=== PATIENT | female | born 1975 ===

== ENCOUNTER 2017-01-06 06:08 | Inpatient (IN) | payer OTHER ==
[2017-01-06] VITALS (12 sets, daily range): BP systolic 97–123; BP diastolic 53–88
[~2017-01-06] VITALS: Ht 165.1 cm; Wt 55.8 kg
[2017-01-06] MEDS ORDERED: LR 1000ml 1,000 ML IVLG SCH (06:32)
--- NOTE | 2017-01-06 06:34 | Anethesia Preoperative Eval ---
Anesthesia Pre-op PMH/ROS General Date of Evaluation: Jan 06, 2017 Time of Evaluation: 07:24 Anesthesiologist: Rica ASA Score: ASA 2 Mallampati Score Class I : Soft palate, uvula, fauces, pillars visible Class II: Soft palate, uvula, fauces visible Class III: Soft palate, base of uvula visible Class IV: Only hard plate visible Mallampati Classification: Class I Surgeon: Muna Diagnosis: Back Pain Surgical Procedure: L4-5, L5-S1 Bilateral, Microdiscectomy, Foraminotomy, Hemilaminotomy Anesthesia History: none Social History: current smoker Family History: no anesthesia problems Allergies: Coded Allergies: PENICILLINS (Verified Allergy, Unknown, 01/05/17) Medications: see eMAR Past Medical History Neurologic/Psychiatric: Reports: depression/anxiety, other - Migranes PSxH Narrative: TL, L Breast Mass Anesthesia Pre-op Phys. Exam Physician Exam Vital Signs Date Time Temp Pulse Resp B/P (MAP) Pulse Ox O2 Delivery O2 Flow Rate FiO2 01/06/17 07:10 98.1 73 20 106/60 100 Room Air Constitutional: NAD Neurologic: CN 2-12 intact Cardiovascular: RRR Respiratory: CTA Gastrointestinal: S/NT/ND Airway Exam Mallampati Score: Class I MO: full ROM: full Teeth: missing Anesthesia Pre-op A/P Labs Urine Test Test 01/06/17 06:20 Urine HCG, Qualitative Pending Risk Assessment & Plan Assessment: ASA 2 Plan: GA, BIS, Glidescope Status Change Before Surgery: No Pre-Antibiotics Dru Grams Ancef IV Given Within 1 Hr of Incision: Yes Time Given: 07:36 Conor Strauss MD Jan 06, 2017 06:34
[2017-01-06] MEDS ORDERED: Acetaminophen (Non formulary) 100 ML IV ONE (06:45)
[2017-01-06] MEDS ORDERED: Ketorolac 30mg Inj IV PRN (06:45)
[2017-01-06] MEDS ORDERED: Metoclopramide 10mg/2ml Inj IVP PRN ×2 (06:45→07:15)
[2017-01-06] MEDS ORDERED: Hydromorphone 0.5mg/0.5ml inj IVP PRN (06:45)
[2017-01-06] MEDS ORDERED: Norco 5mg/325mg tab ORAL PRN ×2 (06:45→07:15)
[2017-01-06] MEDS ORDERED: fentaNYL 100 mcg/2 mL IV PRN (06:45)
[2017-01-06] MEDS ORDERED: DiphenhydrAMINE 50mg/ml Inj IVP PRN (06:45)
[2017-01-06] MEDS ORDERED: oxyCODONE HCL/Acetaminophen 5/325mg ORAL PRN (06:45)
[2017-01-06] MEDS ORDERED: Midazolam 2mg/2ml Inj IVP PRN (06:45)
[2017-01-06] MEDS ORDERED: Atropine Inj 1mg/10ml Syr IV PRN (06:45)
[2017-01-06] MEDS ORDERED: Ketorolac 60mg Inj IV PRN (06:45)
[2017-01-06] MEDS ORDERED: Norco 7.5mg/325mg tab ORAL PRN ×3 (06:45→07:15)
[2017-01-06] MEDS ORDERED: LORazepam Inj 2mg/ml 1ml IV PRN (06:45)
[2017-01-06] MEDS ORDERED: CARISOPRODOL350 MG ORAL (07:02)
[2017-01-06] MEDS ORDERED: MACROBID100 MG ORAL (07:02)
[2017-01-06] MEDS ORDERED: Thrombin 5000 units TOPIC ONE ×4 (07:04→08:47)
[2017-01-06] MEDS ORDERED: Surgicel 4in x 8in TOPIC ONE (07:04)
[2017-01-06] MEDS ORDERED: Ropivacaine 5mg/ml Vial 30ml INJ ONE ×2 (07:05→09:33)
[2017-01-06] MEDS ORDERED: Vancomycin 1gm inj IVPB ONE ×2 (07:05→07:09)
[2017-01-06] MEDS ORDERED: Bacitracin 50000 Units Vial ONE ×2 (07:05→07:10)
[2017-01-06] MEDS ORDERED: Thrombin 5000 units spray kit TOPIC ONE (07:10)
[2017-01-06] MEDS ORDERED: Bupivacaine 0.5% Inj 30 ml vial INJ ONE (07:10)
[2017-01-06] MEDS ORDERED: Gelfoam Absorbable 1gm powder pkt TOPIC ONE (07:10)
[2017-01-06] MEDS ORDERED: Lidocaine 1% 10mg/ml/EPI 0.01mg/ml 50ml INJ ONE (07:10)
--- NOTE | 2017-01-06 07:14 | Pre-Procedure Note/Attestation ---
Pre-Procedure Note/Attestation Complete Prior to Procedure Planned Procedure: not applicable Procedure Narrative: L45 and L5S1 left sided microdiscectomy , bilateral hemilaminotomy decompression Indications for Procedure Pre-Operative Diagnosis: L45 and L5S1 hnp pain Attestation I attest that I discussed the nature of the procedure; its benefits; risks and complications; and alternatives (and the risks and benefits of such alternatives ), prior to the procedure, with the patient (or the patient's legal commercial sales representative). I attest that, if there was a reasonable possibility of needing a blood transfusion, the patient (or the patient's legal commercial sales representative) was given the [place] Department [employer] standardized written summary, pursuant to the Sherwin [place] Blood Safety Act ([place] Health and Safety Code # 1645, as amended). I attest that I re-evaluated the patient just prior to the surgery and that there has been no change in the patient's H&P, except as documented below: SHI DUNCAN Jan 06, 2017 07:14
[2017-01-06] MEDS ORDERED: Milk of Magnesia 30ml Ud ORAL PRN (07:15)
[2017-01-06] MEDS ORDERED: Chloraseptic Spray 20mL Bottle ORAL PRN (07:15)
[2017-01-06] MEDS ORDERED: Naloxone 0.4mg/ml Inj IVP PRN (07:15)
[2017-01-06] MEDS ORDERED: HYDROmorphone 1mg/ml Carpuject SUBQ PRN (07:15)
[2017-01-06] MEDS ORDERED: HYDROmorphone 1mg/ml Carpuject IVP PRN (07:15)
--- NOTE | 2017-01-06 07:15 | Brief Operative Note ---
Immediate Post Operative Note Operative Note Chief Complaint: bilateral leg pain and radiculopathy Pre-op Diagnosis: L45 and L5S1 hnp pain Procedure: L45 and L5S1 left sided microdiscectomy , bilateral hemilaminotomy decompression Post-op Diagnosis: same as pre-op Findings: consistent w/pre-op dx studies Surgeon: Muna Egg Worker: Jair Anesthesia: general Specimen: none Complications: none Condition: stable Estimated Blood Loss: minimal Drains: none Implant(s) used?: Yes - mary ann ioflex sz 12 SHI DUNCAN Jan 06, 2017 07:15
[2017-01-06] MEDS ORDERED: Lidocaine 1% Plain 30 ml INJ ONE (07:30)
[2017-01-06] MEDS ORDERED: fentaNYL 100 mcg/2 mL IV ONE (07:30)
[2017-01-06] MEDS ORDERED: Zemuron 50mg/5ml Inj IV ONE (07:30)
[2017-01-06] MEDS ORDERED: NS Irrig 1000ml ONE (07:30)
[2017-01-06] MEDS ORDERED: Glycopyrrolate 0.2mg/ml 1ml Vial ONE (07:30)
[2017-01-06] MEDS ORDERED: Dexamethasone 4mg/ml vial ONE (07:30)
[2017-01-06] MEDS ORDERED: Lidocaine 1% MPF 10mg/ml 5ml ONE (07:30)
[2017-01-06] MEDS ORDERED: LR 1000ml ONE (07:30)
[2017-01-06] MEDS ORDERED: Sterile Water Irrig 1000ml IRRIG ONE (07:30)
[2017-01-06] MEDS ORDERED: Propofol 1,000mg/ 100ml btl IV ONE (07:30)
--- NOTE | 2017-01-06 08:41 | Immediate Post-Op Evaluation ---
Immediate Post-Op Evalulation Immediate Post-Op Evalulation Procedure: L4-5, L5-S1 Bilateral, Microdiscectomy, Foraminotomy, Hemilaminotomy Date of Evaluation: Jan 06, 2017 Time of Evaluation: 10:20 IV Fluids: 600 LR Blood Products: 0 Estimated Blood Loss: 30 Urinary Output: 200 Blood Pressure Systolic: 123 Blood Pressure Diastolic: 81 Pulse Rate: 87 Respiratory Rate: 16 O2 Sat by Pulse Oximetry: 100 Temperature (Fahrenheit): 98.7 Pain Score (1-10): 3 Nausea: No Vomiting: No Complications 0 Patient Status: awake, reacts, patent, extubated, none Hydration Status: adequate Dru Grams Ancef IV Given Within 1 Hr of Incision: Yes Time Given: 07:36 Conor Strauss MD Jan 06, 2017 08:41
[2017-01-06] MEDS ORDERED: Docusate 100mg cap ORAL SCH (09:00)
--- NOTE | 2017-01-06 11:17 | Diagnostic Imaging Report ---
Indication: PAIN, intraoperative imaging Technique: Intraoperative images Comparison: None Findings: Initial image demonstrates localizing tool posterior to what is presumably the L5-S1 disc. Subsequent images demonstrate surgical tools posterior wall to L5. Subsequent images demonstrate deployment of the Baxano device at L5-S1 and then at L4-5 Impression: Intraoperative imaging, as described
[2017-01-06] MEDS: Dexamethasone 4mg/ml vial IVP SCH ×2 (12:46→17:25)
--- NOTE | 2017-01-06 14:15 | Consultation ---
History of Present Illness General Date patient seen: Jan 06, 2017 Time patient seen: 14:15 Chief Complaint: b/l leg pain and radiclopathy Referring physician: Dr. Toro Reason for Consultation: med mgmt Present Illness HPI 41y/o female with pmh of lower back/leg pain with radiculopathy 2/2 L4-5 and L5- S1 HNP who presents s/p L45 and L5S1 left sided microdiscectomy , bilateral hemilaminotomy decompression earlier today. Postop pain appears well controlled. No f/c, n/v, d/c, chest pain, SOB, abd pain. Pt states she was recently diagnosed with UTI and has been on macrobid for the past 2 days. Allergies: Coded Allergies: PENICILLINS (Verified Allergy, Unknown, 01/05/17) Medication History Scheduled Carisoprodol* (Carisoprodol*), 350 MG ORAL Q12, (Reported) Nitrofurantoin Monohyd/M-Cryst (Nitrofurantoin Stark-Mcr 100 mg), 100 MG ORAL BID , (Reported) Patient History History Provided By: Patient, Family Member, Medical Record Healthcare decision maker YAEL- Resuscitation status Full Code Advanced Directive on File Past Medical/Surgical History Past Medical/Surgical History: (1) HNP (herniated nucleus pulposus), lumbar Family History Family History: (1) Family history of diabetes mellitus Social History Social History: (1) No significant social history Review of Systems ROS Narrative CONSTITUTIONAL: No weight loss, fever, chills, weakness or fatigue. HEENT: Eyes: No visual loss, blurred vision, double vision or yellow sclerae. Ears, Nose, Throat: No hearing loss, sneezing, congestion, runny nose or sore throat. SKIN: No rash or itching. CARDIOVASCULAR: No chest pain, chest pressure or chest discomfort. No palpitations or edema. RESPIRATORY: No shortness of breath, cough or sputum. GASTROINTESTINAL: No anorexia, nausea, vomiting or diarrhea. No abdominal pain or blood. NEUROLOGICAL: No headache, dizziness, syncope, paralysis, ataxia, numbness or tingling in the extremities. No change in bowel or bladder control. MUSCULOSKELETAL: No muscle, back pain, joint pain or stiffness. HEMATOLOGIC: No anemia, bleeding or bruising. LYMPHATICS: No enlarged nodes. No history of splenectomy. PSYCHIATRIC: No history of depression or anxiety. ENDOCRINOLOGIC: No reports of sweating, cold or heat intolerance. No polyuria or polydipsia. ALLERGIES: No history of asthma, hives, eczema or rhinitis. Physical Exam Physical Exam Narrative General: alert, cooperative, no distress, appears stated age Head: normocephalic, without obvious abnormality, atraumatic Eyes: conjunctivae/corneas clear. PERRL, EOM's intact Throat: lips, mucosa, and tongue normal. MMM Neck: supple, symmetrical, trachea midline, and no JVD Lungs: clear to auscultation bilaterally Heart: regular rate and rhythm, S1, S2 normal, no murmur, click, rub or gallop Abdomen: soft, non-tender, non-distended, bowel sounds normal; no masses or organomegaly Extremities: extremities normal, atraumatic, no cyanosis or edema Pulses: 2+ and symmetric Skin: skin color, texture, turgor normal; dressing c/d/i Neurologic: grossly normal, no focal deficits Last 24 Hour Vital Signs Date Time Temp Pulse Resp B/P (MAP) Pulse Ox O2 Delivery O2 Flow Rate FiO2 01/06/17 13:15 98.0 01/06/17 12:00 98.0 67 17 101/54 01/06/17 11:30 98.1 76 18 117/79 01/06/17 11:03 98.8 73 20 120/80 100 Nasal Cannula 3.0 01/06/17 11:02 98.7 01/06/17 10:52 70 20 113/84 100 Simple Mask 8.0 01/06/17 10:38 84 20 114/79 100 Simple Mask 8.0 01/06/17 10:25 103 20 120/70 100 Simple Mask 8.0 01/06/17 10:14 103 20 122/88 100 Simple Mask 8.0 01/06/17 10:09 98.7 96 20 123/81 100 Simple Mask 8.0 01/06/17 10:08 87 16 100 01/06/17 07:10 98.1 73 20 106/60 100 Room Air Intake and Output 01/06/17 01/07/17 19:00 07:00 Intake Total 600 ml Output Total 230 ml Balance 370 ml Intake IV Total 600 ml Output Urine Total 200 ml Estimated Blood Loss 30 ml Laboratory Tests Test 01/06/17 06:20 Urine HCG, Qualitative Negative Height (Feet): 1 Height (Inches): 0.00 Weight (Pounds): 1 Medications Current Medications Medications (Trade) Dose Ordered Sig/Cindy Route PRN Reason Start Time Stop Time Status Last Admin Dose Admin Acetaminophen (Tylenol) 650 mg Q4H PRN ORAL headache or temp>101 01/06/17 07:15 02/05/17 07:14 Acetaminophen/ Hydrocodone Bitart ([place] 5/325) 1 tab Q3H PRN ORAL pain score 1-3 01/06/17 07:15 01/13/17 07:14 Acetaminophen/ Hydrocodone Bitart ([place] 7.5/325) 1 ea Q3H PRN ORAL pain score 4-6 01/06/17 07:15 01/13/17 07:14 Acetaminophen/ Hydrocodone Bitart ([place] 7.5/325) 2 ea Q3H PRN ORAL pain scale 7-10 01/06/17 07:15 01/13/17 07:14 Carisoprodol (Soma) 350 mg TIDPRN PRN ORAL SPASM 01/06/17 07:15 02/05/17 07:14 Cefazolin Sodium 1 gm/Dextrose 55 ml @ 110 mls/hr Q8H IV 01/06/17 15:00 01/07/17 07:29 Cetylpyridinium Chloride (Cepacol) 1 lozenge EVERY 2 HOURS PRN ANTONIO To Patient Comfort 01/06/17 07:15 02/05/17 07:14 Dexamethasone Sodium Phosphate (Decadron 4mg/ml vial) 4 mg Q6H IVP 01/06/17 13:30 01/07/17 07:31 01/06/17 12:46 Docusate Sodium (Colace) 100 mg TWICE A DAY ORAL 01/06/17 18:00 02/05/17 17:59 Hydromorphone HCl (Dilaudid) 1 mg Q2H PRN IVP Breakthrough Pain 01/06/17 07:15 01/13/17 07:14 01/06/17 12:46 Hydromorphone HCl (Dilaudid) 1 mg Q4H PRN SUBQ Mild Pain (Pain Scale 1-3) 01/06/17 07:15 01/13/17 07:14 Hydromorphone HCl (Dilaudid) 2 mg Q3H PRN SUBQ Severe Pain (Pain Scale 7-10) 01/06/17 07:15 01/13/17 07:14 Hydromorphone HCl (Dilaudid) 2 mg Q4H PRN SUBQ Moderate Pain (Pain Scale 4-6) 01/06/17 07:15 01/13/17 07:14 Magnesium Hydroxide (Mom) 30 ml QIDPRN PRN ORAL Constipation 01/06/17 07:15 02/05/17 07:14 Metoclopramide HCl (Reglan) 10 mg Q6H PRN IVP Nausea & Vomiting 01/06/17 07:15 02/05/17 07:14 Naloxone HCl (Narcan) 0.1 mg PRN PRN IVP RR<12/min, pt unarousable 01/06/17 07:15 02/05/17 07:14 Ondansetron HCl (Zofran) 4 mg Q6H PRN IVP Nausea & Vomiting 01/06/17 07:15 02/05/17 07:14 Phenol/Menthol (Chloraseptic) 1 spray Q3H PRN ORAL To Patient Comfort 01/06/17 07:15 02/05/17 07:14 Sodium Chloride 1,000 ml @ 100 mls/hr Q10H IV 01/06/17 14:00 02/05/17 13:59 Temazepam (Restoril) 15 mg HSPRN PRN ORAL Insomnia 01/06/17 07:15 01/13/17 07:14 Assessment/Plan Problem List: (1) HNP (herniated nucleus pulposus), lumbar ICD Codes: M51.26 - Other intervertebral disc displacement, lumbar region SNOMED: 428389869 (2) UTI (urinary tract infection) ICD Codes: N39.0 - Urinary tract infection, site not specified SNOMED: 55274420 Status: stable Assessment/Plan Appreciate surgery rec's s/p L45 and L5S1 left sided microdiscectomy , bilateral hemilaminotomy decompression on 01/06/17 Post operative recommendations include: - encourage mobilization/ambulation - encourage incentive spirometry to optimize pulmonary hygiene - DVT/GI prophylaxis as appropriate - PT/OT - pain control, supportive care, bowel regimen Cont macrobid for UTI--pt has 11 dose sleft FULL CODE D/w pt/family, RN, pharmacist, surgery regarding mgmt and dispo Wijegunaratne,Kanishka M.D. Jan 06, 2017 14:15
[2017-01-06] MEDS: ceFAZolin sod 1 GM in D5W 55 ML IV SCH ×2 (15:20→23:02)
[2017-01-06] MEDS: NS w/KCl 20mEq 1,000 ML IV SCH (15:20)
[2017-01-06] MEDS: Docusate 100mg cap ORAL SCH (17:25)
--- NOTE | 2017-01-06 23:00 | Operative Note - Dictated ---
DATE OF OPERATION: 01/06/2017 SURGEON: Arnulfo Toro MD Tip Inserter: Court Adam ANESTHESIA: General endotracheal anesthesia. PREOPERATIVE DIAGNOSES: 1. Intractable back pain. 2. Intractable leg pain. 3. Worsening radiculopathy. 4. Weakness. 5. Herniated nucleus pulposus, L4-L5 and L5-S1 with herniation. 6. Neural foraminal stenosis, L4-L5 and L5-S1. POSTOPERATIVE DIAGNOSES: 1. Intractable back pain. 2. Intractable leg pain. 3. Worsening radiculopathy. 4. Weakness. 5. Herniated nucleus pulposus, L4-L5 and L5-S1 with herniation. 6. Neural foraminal stenosis, L4-L5 and L5-S1. PROCEDURES PERFORMED: 1. Left sided L4-L5 and L5-S1 microdiscectomy. 2. L4-L5 and L5-S1 hemilaminotomy, foraminotomy and medial facetectomy. 3. Bilateral L4-L5 and L5-S1 neural foraminotomy through a transpedicular intraforaminal approach. 4. Use of intraoperative microscope. 5. Supervision and interpretation of intraoperative fluoroscopy. 6. Supervision and interpretation of somatosensory-evoked potential and free running EMG monitoring. EBL: Less than 100 mL. COMPLICATIONS: None. DESCRIPTION OF INJURY: On 11/02/2013, the patient was at a local supermarket when she slipped on water on the floor and fell to the ground. She describes twisting her back and tingling on her leg on the left side afterwards. After the accident, she experienced back pain and leg pain. INDICATIONS FOR THE PROCEDURE: The patient presents for intractable back pain and radiculopathy. The patient tried and failed a prolonged course of conservative management, including but not limited to chiropractic therapy, physical therapy, nonsteroidal anti-inflammatory drugs, medication, ice packs as well as epidural injection. Despite these therapies, the patient still developed recalcitrant pain and elected for definitive management in the form of bilateral L4-L5 and L5-S1 microdiscectomy; L4-L5 and L5-S1 hemilaminotomy, foraminotomy and medial facetectomy; and L4-L5 and L5-S1 neural foraminotomy through a transpedicular intraforaminal approach. CONSENT: We had a long discussion with the patient regarding definitive surgical treatment options. The patient's MRI demonstrated herniated nucleus pulposus, L4-L5 and L5-S1 with herniation and neural foraminal stenosis, L4-L5 and L5-S1, and as a result, I felt the patient would benefit from the discectomy as well as neural foraminotomy at this level. We had a long discussion with the patient regarding the risks, alternatives, and benefits of surgery. Our description of the risks included a discussion in person as well as a signed consent which detailed all pertinent risks and the procedure itself. Briefly, our discussion included but was not limited to infection, bleeding, pseudarthrosis, spinal cord injury, neurovascular injury, dural tear, CSF leak, neuropathy, paralysis, permanent weakness/drop foot, paresthesias blindness, palsy and weakness. The patient understood there may be a need for revision surgery or additional procedures. Approach related complications including dysphonia, dysphagia, blindness, permanent vocal cord and neural injury, hematoma, swallowing and breathing difficulty. Medical complications including liver, kidney, shock, and cardiopulmonary failure. Anesthesia complications including , swelling. Damage to the musculature, larynx (voice injury or loss),esophagus (throat), trachea, blood vessels and muscles (muscular sprain) and lungs (pneumothorax) during this surgical procedure. Injury to deeper structures may be temporary or permanent. The patient understood these and elected to proceed. A written and verbal consent was given. We discussed the pros and cons of all the alternatives. We discussed the uncertainties associated with the decision. Afterwards I assessed the patients understanding and explored their preferences. All questions were answered and no guarantees were given. Medical clearance was obtained prior to surgery OPERATIVE FINDINGS: A broad-based disc herniation at L4-L5 and L5-S1, which encroached on the thecal sac and neural foraminal elements therein. This disc was acute in nature and not calcified. It was mobile and free floating and resected easily. There was also neural foraminal stenosis at L4-L5 and L5-S1. DESCRIPTION OF PROCEDURE: Under the benefit of general endotracheal anesthesia and with the assistance of the entire operative team, the patient was moved from the [facility] onto the operative table in the prone position on a Chance frame. The head was secured and positioned appropriately. Bilateral arms were secured with Gel pads and foam and all bony prominences were padded. The bilateral lower extremity SCD and LAKISHA hose were placed for DVT prophylaxis. A surgical timeout was called which corroborated our planned procedure. Preoperative Antibiotics were administered within 30 minutes of the incision for prophylaxis. Decadron was given for preoperative steroids. Using lateral radiography, the operative levels were delineated. An incision was marked based on our interpretation of lateral radiography and afterwards the body was prepped and draped in the usual sterile manner. The family was notified that we were ready to commence surgery and were called in the waiting room hourly for updates An incision was based on our lateral fluoroscopic image to center the incision at the L5-S1 interspace. The wound was prepped and draped in the usual sterile fashion. Using a scalpel a midline incision was taken down through the skin and subcutaneous tissues until the overlying hemilamina of L4-L5 and L5-S1 were visualized. Next, using meticulous hemostasis, hemilaminotomies were dissected and retractors were placed. Using a Kandu dental, we confirmed placement at the L4-L5 and L5-S1 interspace. We next turned our attention to our decompression. A standard hemilaminotomy, foraminotomy, and medial facetectomy was performed at each level in standard fashion using a Midas-Fernando type AM8 drill bit, straight and angled curettage, and Kerrison 4 rongeurs until the lateral thecal sac margin and traversing nerve root was visualized. All remainders of the ligamentum flavum and lateral bony margins were resected in total with angled curettage and Kerrison 4 rongeurs until the lateral thecal sac margin and traversing nerve root was visualized and decompressed. We next turned our attention toward our L4-L5 and L5-S1 microdiscectomy on the bilateral side. A Yoder 4 was used to gently mobilize the thecal sac medially and this was held retracted with a bayonetted nerve root retractor. It was at this point that we noted a large broad-based disc protrusion with encroachment dorsally on the thecal sac neural foraminal contents. A bayonet and nerve root retractor was then placed carefully to retract the thecal sac and a discectomy was performed using a combination of a long handled 15 blade scalpel, downgoing and straight pituitaries and downgoing curettage. Afterward the disc space was irrigated twice with 20 mL of antibiotic-impregnated saline. All loose and free-floating disc fragments were carefully resected with a narrow pituitary. Having been satisfied with our decompression after our discectomy of all neural elements, we next turned our attention to our neural foraminoplasty/foraminotomy. This was performed through a transpedicular intraforaminal approach using an access probe followed by a neuro check device, which confirmed ventral placement of our nerve root. Once we confirmed we were safe, we next turned our attention towards placement of our size 10 file under direct microscopic visualization and under lateral fluoroscopy. Using pre and post reciprocation imaging, we were able to visualize our direct decompression given the reciprocation allowed for re-creation of the neural foraminal arch at L4-L5 and L5-S1. Afterwards, hemostasis was obtained with 60 mL of antibiotic-impregnated saline followed by FloSeal and Gelfoam. After sponge and needle count were found to be correct, we next turned our attention to closure. Closure consisted of 1-0 Vicryl in standard interrupted fashion. Zosyn was placed deep to the fascia and superficial to the fascia for antibiotic prophylaxis. Skin closure was performed with 2-0 Vicryl in interrupted fashion followed by a running Monocryl for the skin. Final dressings consisted of Dermabond for the superficial skin, Telfa and Tegaderm. The patient tolerated the procedure well. The patient was extubated after the conclusion of surgery without incident. We discussed the findings of the surgery with the family upon completion of the case. At this point the patient will be transferred to the spine floor for further observation. Arnulfo Toro M.D. DR: AURELIANO JOB#: [id number] CC: BREANNE
[2017-01-07] VITALS (7 sets, daily range): BP systolic 97–133; BP diastolic 53–73
[2017-01-07] MEDS: Dexamethasone 4mg/ml vial IVP SCH ×2 (01:04→06:24)
[2017-01-07] MEDS: NS w/KCl 20mEq 1,000 ML IV SCH ×3 (04:27→17:43)
[2017-01-07] MEDS: ceFAZolin sod 1 GM in D5W 55 ML IV SCH (06:24)
--- NOTE | 2017-01-07 07:17 | 48 Hour Post Anesthesia Eval ---
Post Anesthesia Evaluation Procedure: L4-5, L5-S1 Bilateral, Microdiscectomy, Foraminotomy, Hemilaminotomy Date of Evaluation: Jan 07, 2017 Time of Evaluation: 06:26 Blood Pressure Systolic: 97 0: 54 Pulse Rate: 62 Respiratory Rate: 17 Temperature (Fahrenheit): 98.7 O2 Sat by Pulse Oximetry: 99 Airway: patent Nausea: No Vomiting: No Pain Intensity: 1 Hydration Status: adequate Cardiopulmonary Status: Stable Follow-up Care/Observations: 0 Post-Anesthesia Complications: 0 Follow-up care needed: ready to discharge Conor Strauss MD Jan 07, 2017 07:17
[2017-01-07] MEDS: Docusate 100mg cap ORAL SCH ×2 (09:04→17:41)
[2017-01-07] MEDS ORDERED: Hydromorphone 0.5mg/0.5ml inj SUBQ PRN (15:15)
[2017-01-07] MEDS: Hydromorphone 0.5mg/0.5ml inj IVP PRN ×2 (15:27→22:59)
--- NOTE | 2017-01-07 15:54 | General Progress Note ---
Assessment/Plan Problem List: (1) HNP (herniated nucleus pulposus), lumbar ICD Codes: M51.26 - Other intervertebral disc displacement, lumbar region SNOMED: 710889345 (2) UTI (urinary tract infection) ICD Codes: N39.0 - Urinary tract infection, site not specified SNOMED: [id number] Status: stable Assessment/Plan Appreciate surgery rec's s/p L45 and L5S1 left sided microdiscectomy , bilateral hemilaminotomy decompression on 01/07/17 Cont Macrobid for UTI Post operative recommendations include: - encourage mobilization/ambulation - encourage incentive spirometry to optimize pulmonary hygiene - DVT/GI prophylaxis as appropriate - PT/OT - pain control, supportive care, bowel regimen - DC planning--likely d/c home tomorrow D/w pt/family, RN, SW/CM and surgery regarding mgmt and dispo Subjective Date patient seen: Jan 07, 2017 Time patient seen: 15:53 ROS Limited/Unobtainable: No Constitutional: Reports: weakness HEENT: Reports: no symptoms Cardiovascular: Reports: no symptoms Respiratory: Reports: no symptoms Gastrointestinal/Abdominal: Reports: nausea Genitourinary: Reports: no symptoms Neurologic/Psychiatric: Reports: anxiety, depressed Endocrine: Reports: no symptoms Hematologic/Lymphatic: Reports: no symptoms Allergies: Coded Allergies: PENICILLINS (Verified Allergy, Unknown, 01/05/17) All Systems: reviewed and negative except above Subjective No acute o/n events POD#1 Worked w/ PT/OT. Pain controlled. Poor PO intake. Having some nausea but no emesis. Denies f/c, chest pain, SOB, abd pain Objective Last 24 Hour Vital Signs Date Time Temp Pulse Resp B/P (MAP) Pulse Ox O2 Delivery O2 Flow Rate FiO2 01/07/17 12:00 98.7 62 18 109/54 100 Room Air 01/07/17 08:02 Nasal Cannula 2.0 28 01/07/17 08:00 97.5 65 18 104/70 100 Room Air 01/07/17 07:17 62 17 99 01/07/17 06:08 98.7 01/07/17 05:29 98/58 01/07/17 04:00 99 Room Air 01/07/17 04:00 98.7 62 17 97/54 99 01/07/17 00:00 98.2 69 17 109/53 99 01/07/17 00:00 99 Room Air 01/06/17 20:12 63 107/53 01/06/17 20:00 98.6 67 18 98/66 99 01/06/17 20:00 99 Room Air 01/06/17 19:27 Nasal Cannula 2.0 28 01/06/17 16:00 97.0 72 17 98/63 Height (Feet): 1 Height (Inches): 0.00 Weight (Pounds): 1 Objective General: alert, cooperative, no distress, appears stated age Head: normocephalic, without obvious abnormality, atraumatic Eyes: conjunctivae/corneas clear. PERRL, EOM's intact Throat: lips, mucosa, and tongue normal. MMM Neck: supple, symmetrical, trachea midline, and no JVD Lungs: clear to auscultation bilaterally Heart: regular rate and rhythm, S1, S2 normal, no murmur, click, rub or gallop Abdomen: soft, non-tender, non-distended, bowel sounds normal; no masses or organomegaly Extremities: extremities normal, atraumatic, no cyanosis or edema Pulses: 2+ and symmetric Skin: skin color, texture, turgor normal; dressing c/d/i Neurologic: grossly normal, no focal deficits Yrn Johnson M.D. Jan 07, 2017 15:53
[2017-01-08] VITALS: BP 126/73
[2017-01-08 04:00] VITALS: BP 96/60
[2017-01-08] MEDS: NS w/KCl 20mEq 1,000 ML IV SCH (04:37)
[2017-01-08 07:57] LABS: ANION GAP 7 mmol/L (5-15); CALCIUM 8.3 MG/DL (8.5-10.1); CARBON DIOXIDE 26 MMOL/L (21-32); CHLORIDE 107 MMOL/L (98-107); CREATININE 0.8 MG/DL (0.55-1.30); GLOMERULAR FILTRATION RATE > 60 mL/min (>60); POTASSIUM 3.7 MMOL/L (3.5-5.1); SODIUM 140 MMOL/L (136-145)
[2017-01-08] MEDS: Docusate 100mg cap ORAL SCH (08:06)
[2017-01-08 08:20] VITALS: BP 109/65
--- NOTE | 2017-01-08 20:00 | Discharge Summary ---
DATE OF ADMISSION: 01/06/2017 DATE OF DISCHARGE: 01/08/2017 PROCEDURE PERFORMED DURING ADMISSION: 1. Microdiskectomy, L4-L5 and L5-S1. 2. Decompression, L4-5 and L5-S1. REASON FOR ADMISSION: Herniation of L4-L5 and L5-S1. HOSPITAL COURSE/TREATMENT RENDERED: DISCHARGE PHYSICAL EXAM: 1. Patient was ambulating with and without the assistance of physical therapy. 2. Prior to discharge home incision was clean and dry with minimal swelling. 3. Follows commands. 4. Alert and oriented. 5. Garcia discontinued, voiding. 6. Incentive spirometer at bedside. 7. IVF hep locked. MOTOR: Demonstrates expected postoperative bulk and tone. Moves biceps, triceps, and deltoid musculature on command. Moves hip flexors, quadriceps, tibialis anterior, EHL, gastrocsoleus musculature on command as well. TREATMENT RENDERED: 1. Daily nursing care. 2. Physical therapy. 3. Occupational therapy. 4. Intravenous medications. 5. Oral medications. 6. Daily postoperative examinations by Spine Surgery team. CONDITION OF PATIENT ON DISCHARGE: The condition on discharge is stable for discharge to home. DISCHARGE INSTRUCTIONS: Our specific instructions relating to physical activity, medications diet and follow-up care are detailed in our standard operative folder and were given to this patient prior to surgery. We will however summarize these briefly as stated below. Regarding physical activity we would like the patient to limit their flexion, extension and rotation. We also require a limitation on their bending lifting and twisting. All medication has been called in prior to surgery to their pharmacy of choice. They can resume their regular diet once tolerated. We would like them to shower and limit soaking the wound in a tub/Jacuzzi/the ocean for a period of one month or until the incision is completely healed. We will have them follow up in our office in three weeks time for their regularly scheduled appointment. They understand to call our office tomorrow to schedule the time for their three week followup appointment. The patient will notify us should they experience any increase in the severity of pain, redness, swelling, or drainage from their incision. Arnulfo Toro M.D. DR: AURELIANO JOB#: [id number] CC: BREANNE
== END 2017-01-08 09:52 | disposition home or self-care (01) | DRG 519 ==
LOC: SDSOVERFLO 06:08 → 3E 11:30
PROC: 0SB20ZZ Excision of Lumbar Vertebral Disc, Open Approach (ICD-10-PCS; principal; 2017-01-06 07:30)
PROC: 01NB0ZZ Release Lumbar Nerve, Open Approach (ICD-10-PCS; principal; 2017-01-06 07:30)
PROC: 0SB40ZZ Excision of Lumbosacral Disc, Open Approach (ICD-10-PCS; principal; 2017-01-06 07:30)
DX: M51.16 Intervertebral disc disorders with radiculopathy, lumbar region (principal); N39.0 Urinary tract infection, site not specified; M48.061 Spinal stenosis, lumbar region without neurogenic claudication; M51.17 Intervertebral disc disorders with radiculopathy, lumbosacral region; M48.07 Spinal stenosis, lumbosacral region; W01.0XXS Fall on same level from slipping, tripping and stumbling without subsequent striking against object, sequela; Z88.0 Allergy status to penicillin
CPT/HCPCS: 36415; 72020; 76001; 80048; 81025; 86850; 86900; 86901; 87081; 94003; 94150; 94760; J2405